=== PATIENT | female | born 1990 | race Caucasian/White ===

== ENCOUNTER 2018-07-04 22:25 | Inpatient (IN) | payer OTHER ==
[~2018-07-04] VITALS: Ht 158.8 cm; Wt 66.2 kg
[2018-07-04] MEDS: BETAMET NA PHOS/AC(6 MG/ML) 2 ML INJ SYG IM SCH ×2 (00:45→02:15)
[2018-07-04] MEDS ORDERED: MAGNESIUM SULFATE 4 GM/100 ML 100 ML IV ONE (23:30)
[2018-07-05] MEDS: MAGNESIUM SULFATE 20 GM/500 ML 500 ML IV SCH ×2 (02:04→09:31)
[2018-07-05] MEDS: LACTATED RINGER'S 1,000 ML IV SCH ×2 (03:06→16:53)
[2018-07-05] MEDS ORDERED: BUTORPHANOL 2 MG INJ IV ONE (05:30)
[2018-07-05] MEDS: PRENATAL VITAMIN PO SCH (08:43)
[2018-07-05] MEDS: FERROUS SULFATE (EC) 325 MG TAB PO SCH (08:44)
[2018-07-05] MEDS ORDERED: ONDANSETRON 4 MG INJ IV PRN (09:00)
[2018-07-05] MEDS ORDERED: ACETAMINOPHEN 325 MG TAB PO PRN (09:00)
[2018-07-05] MEDS ORDERED: BETAMET NA PHOS/AC(6 MG/ML) 2 ML INJ SYG IM SCH (09:00)
[2018-07-05] MEDS: AMPICILLIN 1 GM/NS (PMX) 50 ML IVPB SCH ×3 (09:26→22:27)
[2018-07-05] MEDS ORDERED: ACCU-CHEK XX SCH ×2 (09:35)
[2018-07-05] MEDS ORDERED: GLUCOSE GEL 15 GRAM TUBE PO PRN ×2 (11:00)
[2018-07-05] MEDS ORDERED: GLUCOSE GEL 15 GRAM TUBE BUCCAL PRN (11:00)
[2018-07-05] MEDS ORDERED: GLUCAGON 1 MG INJ IM PRN (11:00)
[2018-07-05] MEDS ORDERED: DEXTROSE 50% 50 ML SYRINGE IV PRN ×2 (11:00)
[2018-07-05] MEDS ORDERED: INSULIN ASPART [NOVOLOG] 3 ML PEN SC SCH (11:30)
--- NOTE | 2018-07-05 19:33 | PN ---
DATE: 07/05/2018 TIME: 10:30 a.m. SUBJECTIVE: The patient feels good, having occasional contractions. No headache, no blurring of vis ion. OBJECTIVE VITAL SIGNS: She is afebrile. Vital signs stable. ABDOMEN: Soft. No tenderness noted. PELVIC: No vaginal bleeding noted. EXTREMITIES: No calf tenderness. ASSESSMENT: 1. A 30 and 6/7 weeks intrauterine with labor. 2. Previous section. 3. Gestational diabetes, diet controlled. PLAN: Dr. Amador was consulted and she advised to give her antibiotics only if she has urinary tract infection. She had received 1 dose of betamethasone, and to be repeated 24 hours later. The magnesi um sulfate was 2 gm, but increased to 3 gm during the day because she was still lissette. She was also given Stadol for the pain. She will be observed closely. Dictated By: JESSIKA OWUSU MD NS/NTS Conf#: [id number] DID#: [id number] CC: JESSIKA OWUSU MD;*EndCC*
[2018-07-05] MEDS: INSULIN ASPART [NOVOLOG] 3 ML PEN SC SCH ×2 (19:41→21:00)
--- NOTE | 2018-07-05 19:41 | PREOPHP ---
DATE OF ADMISSION: 07/04/2018 HISTORY OF PRESENT ILLNESS: This is a 27-year-old lady, 4, para 3. EDC 09/07/2018 at 30 and 5/7 weeks , admitted to labor and delivery area because of contractions that this started ab out a few hours prior to admission and got worse up to the time of admission. She had care in my [facility] office and the care was uneventful except she has gestational diabetes on diet control. She is being followed by our perinatologist at [facility]. PAST PERSONAL HISTORY: No history of TB, asthma, nor allergy. SOCIAL HISTORY: Patient does not smoke. She does not drink. MEDICATIONS: She does not take any drugs except her iron and vitamins. GYNECOLOGIC HISTORY: She had menarche at the age of 10, every 28 days interval, 3 to 4 days duration , and moderate in amount. FAMILY HISTORY: Noncontributory. She is 4, para 3. Her first delivery was 10 years ago at 38 weeks, second 5 years ago at 37 weeks, third 2 years ago at 32 weeks, all by . She had another surgery done before when she was around 16 years old because of cyst removed on the right ovary. FAMILY HISTORY: Noncontributory. REVIEW OF SYSTEMS: CARDIOVASCULAR: No chest pains. RESPIRATORY: No cough. GASTROINTESTINAL: No diarrhea, no vomiting. GENITOURINARY: No dysuria. PHYSICAL EXAMINATION: GENERAL: Reveals a conscious, coherent lady and in not acute distress. VITAL SIGNS: Her blood pressure 120/80, pulse rate 80 per minute, respirations 16 per minute. BREASTS, HEART AND LUNGS: Within normal limits. ABDOMEN: Soft. No organomegaly. Fundic height 30 cm. heart tones 140 per minute. No tender ness noted in the uterine incision. PELVIC: Revealed the cervix to be closed and no bleeding noted. EXTREMITIES: No pedal edema. ADMITTING DIAGNOSIS: A 30 and 5/7 weeks intrauterine , rule out labor and rule out dehydrat ion, gestational diabetes on diet control, and 3 previous C-sections. PLAN: The patient was planned to have IV hydration and to be bolused with 500 mL of IV fluids and th en she will be admitted, observed and to be started on magnesium sulfate if contractions continue. S he will have also a CBC, CMP, urinalysis and urine culture and sensitivity. The plans were explained to the patient and she understood everything totally. The risks, benefits, and alternatives were di scussed with her as well. She still having contractions after 1 hour of observation, so she was star anson on magnesium sulfate 4 grams bolus and 2 grams per hour. She was started on betamethasone as wel l. Then, the plan have explained to the patient and she understood everything totally. Dictated By: JESSIKA VAIL/FITZ Conf#: [id number] DID#: [id number]
[2018-07-05 21:01] VITALS: Ht 158.8 cm; Wt 66.2 kg
[2018-07-06] MEDS ORDERED: BETAMET NA PHOS/AC(6 MG/ML) 2 ML INJ SYG IM ONE (02:00)
[2018-07-06] MEDS: MAGNESIUM SULFATE 20 GM/500 ML 500 ML IV SCH (02:10)
[2018-07-06] MEDS: AMPICILLIN 1 GM/NS (PMX) 50 ML IVPB SCH ×2 (05:59→13:34)
[2018-07-06] MEDS: LACTATED RINGER'S 1,000 ML IV SCH (06:00)
[2018-07-06] MEDS: FERROUS SULFATE (EC) 325 MG TAB PO SCH (08:59)
[2018-07-06] MEDS: PRENATAL VITAMIN PO SCH (09:00)
--- NOTE | 2018-07-06 15:09 | PN ---
DATE: 07/06/2018 TIME: 1:00 p.m. SUBJECTIVE: The patient feels good. No contractions. Does not have any complaint. She had good betito wel movement. She had good gas per rectum. She had good urine output. OBJECTIVE: VITAL SIGNS: She is afebrile. Vital signs stable. ABDOMEN: Soft, no tenderness noted. PELVIC: Deferred. EXTREMITIES: No pedal edema. ADMITTING: My impression on this patient is 31 weeks IUP with resolved labor. The patient w anted to go home today and she received 2 doses of betamethasone and magnesium had been continued unt il 2:00 p.m. today, which is only 12 hours after the last dose of betamethasone, but the patient want ed to go home, so then the patient will to be discharged home in good and stable condition on 1999 and then she will be on bed rest at home. She will come back to the clinic if there is any pr oblem or concern. She will be given prescription for Procardia 10 mg q. 6 hours. She will see Dr. Milly connors, the perinatologist in 1 week. She was discharged home in good and stable condition. Dictated By: JESSIKA VAIL/FITZ Conf#: [id number] DID#: [id number]
--- NOTE | 2018-07-06 15:30 | DS ---
DATE OF ADMISSION: 07/04/2018 DATE OF DISCHARGE: 07/06/2018 This is a 27-year-old lady, 4, para 3, EDC 09/07/2018 at 30 and 5/7 weeks, admitted with pret erm labor. HISTORY OF PRESENT ILLNESS: See dictated history and physical. PHYSICAL EXAMINATION: See dictated history and physical. ADMITTING DIAGNOSES: 1. A 30 and 5/7 weeks intrauterine . 2. labor. 3. Gestational diabetes mellitus, diet control. HOSPITAL COURSE: The patient was given betamethasone and she was given magnesium sulfate and she res ponded well. She did have good during the observation on 07/05/2018 and 07/06/2018. The patient wan anson to go home on 07/06/2018. She was not having any contractions. She was feeling good. She was d ischarged home in good and stable condition on 1999 ADA diet. She was given prescription for Procard ia 10 mg q.6 hours. Also, it was only 12 hours after the second dose of betamethasone was given, but the patient did not like to stay and she wanted to go home, so she was discharged home in good and s table condition. FINAL DIAGNOSES: 1. A 31 weeks intrauterine . 2. Gestational diabetes on diet control. 3. labor. Dictated By: JESSIKA OWUSU MD NS/NTS Conf#: [id number] DID#: [id number] CC: MAKAYLA ZAPATA MD;*EndCC*
== END 2018-07-06 14:54 | disposition home or self-care (01) | DRG 833 ==
LOC: OBT 22:25 → L-D 22:25 → OBT 23:00 → L-D 23:00
PROVIDERS: ADMIT Obstetrics & Gynecology; ATTEND Obstetrics & Gynecology
DX: O60.03 Preterm labor without delivery, third trimester (principal); O24.410 Gestational diabetes mellitus in pregnancy, diet controlled; O34.219 Maternal care for unspecified type scar from previous cesarean delivery; Z3A.30 30 weeks gestation of pregnancy
CPT/HCPCS: 76815; 76817; 76818; 80053; 81001; 82731; 82962; 83735; 84560; 85025; 86592; 86850; 86900; 86901; 87086; G0463; J0290; J0595; J0702; J1815; J2405; J3475; J7120

== ENCOUNTER 2018-08-18 19:06 | Inpatient (IN) | payer OTHER ==
[~2018-08-18] VITALS: Ht 158.8 cm; Wt 67.6 kg
[2018-08-18 19:24] VITALS: BP 118/57; PULSE 101; RESP 18
[2018-08-18] MEDS ORDERED: PNV11TAB PO (21:08)
[2018-08-18 21:09] VITALS: Ht 158.8 cm; Wt 67.6 kg
[2018-08-18] MEDS ORDERED: LACTATED RINGER'S 500 ML IV ONE (21:30)
[2018-08-18] MEDS ORDERED: OXYTOCIN 30 UNITS/LR 500 ML IV PRN (21:30)
[2018-08-18] MEDS ORDERED: MISOPROSTOL 200 MCG TAB PR PRN (21:30)
[2018-08-18] MEDS ORDERED: METHYLERGONOVINE 0.2 MG INJ IM PRN (21:30)
[2018-08-18] MEDS ORDERED: OXYTOCIN 30 UNITS/LR 500 ML IV SCH (21:30)
[2018-08-18] MEDS ORDERED: CARBOPROST 250 MCG INJ IM PRN (21:30)
[2018-08-18] MEDS ORDERED: CEFAZOLIN 2 GM/50 ML (PMX) 50 ML IVPB SCH (21:30)
--- NOTE | 2018-08-18 23:36 | TRIAGE ---
OB Triage Datetime Report Generated by CPN: 08/18/2018 23:35 Datetime: 08/18/2018 22:51 Assessment Type: Admission Assessment Vaginal Bleeding: None Maternal Assessment Level of Consciousness: Keenly Alert, Responsive DTR's/Clonus: DTRs 2+; No Clonus Headache: Denies Blurred Vision: No Respiratory Effort: Unlabored; Regular Rhythm; Equal Expansion Breath Sounds, Left: Clear and Equal Breath Sounds, Right: Clear and Equal Nausea/Vomiting: Denies RUQ Epigastric Pain: Denies Lower Extremities Edema: None Upper Extremities Edema: None Facial Edema: None Fall Risk Assessment History of Falling: (0) No Secondary Diagnosis: (0) No Ambulatory Aid: (0) Bedrest/Nurse Assist IV Therapy: (20) Yes Gait: (0) Normal/Bedrest/Immobile Mental Status: (0) Oriented to Own Ability Fall Score: 20 Fall Risk Score Definition: No Risk: No action required Pain Assessment Pain Scale: 4 Pain Presence: Intermittent Pain Type: Contraction Pain Location: Abdomen Pain Goal: 0 Datetime: 08/18/2018 20:40 Vaginal Exam Dilatation (cms): 2.0 Effacement (%): 60 Station: -2 Exam By: Gustavo Boateng RN Vaginal Bleeding: None Cervix, Consistency: Moderate Cervix, Position: Posterior Presentation 'A': Cephalic Datetime: 08/18/2018 19:45 Time of Arrival: 08/18/2018 22:10 EGA: 37.1 Arrived By: Ambulatory Arrived From: Home Chief Complaint: UC's Movement: Present Contractions: Irregular Time Contractions Began: 08/18/2018 10:00 Contractions: Every 5-10 minutes Rupture of Membranes: Denies Vaginal Bleeding: None Vaginal Discharge: Denies Recent Sexual Intercouse: Denies Abdominal Trauma: Not Applicable Patient Complaints: Contractions; Other Additional Patient Complaints: Small bump under each armpit. Time Provider Notified: 08/18/2018 20:55 Provider Notified: Dr. Johnson Initial Plan: [facility] Datetime: 08/18/2018 19:24 Stage of : OB Triage Assessment Type: Triage Maternal Assessment Level of Consciousness: Keenly Alert, Responsive DTR's/Clonus: DTRs 2+; No Clonus Headache: Denies Blurred Vision: No Respiratory Effort: Unlabored; Regular Rhythm; Equal Expansion Breath Sounds, Left: Clear and Equal Breath Sounds, Right: Clear and Equal Nausea/Vomiting: Denies RUQ Epigastric Pain: Denies Lower Extremities Edema: None Degree: None Upper Extremities Edema: None Degree: None Facial Edema: None Temperature Route: Oral Fall Risk Assessment History of Falling: (0) No Secondary Diagnosis: (0) No Ambulatory Aid: (0) Bedrest/Nurse Assist IV Therapy: (0) No Gait: (0) Normal/Bedrest/Immobile Mental Status: (0) Oriented to Own Ability Fall Score: 0 Fall Risk Score Definition: No Risk: No action required Pain Assessment Pain Scale: 6 Pain Presence: Intermittent Pain Type: Cramping Pain Location: Abdomen Datetime: 07/06/2018 14:05 Stage of : Antepartum Datetime: 07/06/2018 12:18 Labor Evaluation Frequency: 0 Monitor Mode: External Monitor Mode: External US (Annotations: LOSS OF INFORMATION,SITTING UP FOR LUNCH) Datetime: 07/06/2018 12:17 Stage of : Antepartum Temperature Route: Oral Pain Assessment Pain Scale: 0 Pain Presence: None/Denies Pain Goal: 0 Datetime: 07/06/2018 11:30 Labor Evaluation Frequency: X1 Monitor Mode: External Duration (sec)2399: 50 Quality: Mild Pattern: Normal: <= 5 Contractions in 10 Minutes Resting Tone Whiteriver: Relaxed Heart Rate FHR Baseline Rate: 130 Monitor Mode: External US FHR Baseline Changes: No Baseline Change Variability: Moderate 6-25 bpm Accelerations: 10X10 Decelerations: None Category: Category I Datetime: 07/06/2018 10:30 Labor Evaluation Frequency: X4 Monitor Mode: External Duration (sec)2399: 30-40 Quality: Mild Pattern: Normal: <= 5 Contractions in 10 Minutes Resting Tone [place]iteriver: Relaxed Heart Rate FHR Baseline Rate: 120 Monitor Mode: External US FHR Baseline Changes: No Baseline Change Variability: Moderate 6-25 bpm Accelerations: 15X15 Decelerations: None Category: Category I Datetime: 07/06/2018 09:30 Labor Evaluation Frequency: 0 Monitor Mode: External Pattern: Normal: <= 5 Contractions in 10 Minutes Resting Tone [place]iter[place]: Relaxed Heart Rate FHR Baseline Rate: 125 Monitor Mode: External US FHR Baseline Changes: No Baseline Change Variability: Moderate 6-25 bpm Accelerations: 10X10 Decelerations: None Category: Category I Datetime: 07/06/2018 08:26 Labor Evaluation Frequency: X1 Monitor Mode: External Quality: Mild Pattern: Normal: <= 5 Contractions in 10 Minutes Resting Tone [place]iteriver: Relaxed Heart Rate FHR Baseline Rate: 130 Monitor Mode: External US FHR Baseline Changes: No Baseline Change Variability: Moderate 6-25 bpm Accelerations: 15X15 Decelerations: None Category: Category I Datetime: 07/06/2018 07:43 Maternal Assessment Level of Consciousness: Fully Conscious DTR's/Clonus: DTRs 2+; No Clonus Headache: Denies Blurred Vision: No Respiratory Effort: Unlabored; Regular Rhythm; Equal Expansion Breath Sounds, Left: Clear and Equal Breath Sounds, Right: Clear and Equal Nausea/Vomiting: Denies RUQ Epigastric Pain: Denies Facial Edema: None Fall Risk Assessment History of Falling: (0) No Secondary Diagnosis: (0) No Ambulatory Aid: (0) Bedrest/Nurse Assist Gait: (0) Normal/Bedrest/Immobile Mental Status: (0) Oriented to Own Ability Datetime: 07/06/2018 07:02 Stage of : Antepartum Temperature Route: Oral Pain Assessment Pain Scale: 0 Pain Presence: None/Denies Pain Goal: 0 Datetime: 07/06/2018 06:00 Maternal Assessment Level of Consciousness: Fully Conscious DTR's/Clonus: No Clonus Headache: Denies Blurred Vision: No Nausea/Vomiting: Denies RUQ Epigastric Pain: Denies Facial Edema: None Labor Evaluation Frequency: X5/HR Monitor Mode: External Duration (sec)2399: 60-120 Quality: Mild Resting Tone [place]iter[place]: Relaxed Contraction Comments: PT DENIES FEELING CONTRACTIONS Heart Rate FHR Baseline Rate: 135 Monitor Mode: External US Variability: Moderate 6-25 bpm Accelerations: 15X15 Decelerations: None Category: Category I Pain Assessment Pain Scale: 0 Pain Presence: None/Denies Pain Type: N/A Datetime: 07/06/2018 05:00 Labor Evaluation Frequency: X1 Monitor Mode: External Duration (sec)2399: 90 Quality: Mild Pattern: Normal: <= 5 Contractions in 10 Minutes Resting Tone [place]iteriver: Relaxed Heart Rate FHR Baseline Rate: 135 Monitor Mode: External US FHR Baseline Changes: No Baseline Change Variability: Moderate 6-25 bpm Accelerations: 15X15 Decelerations: None Category: Category I Datetime: 07/06/2018 04:00 Labor Evaluation Frequency: X2 Monitor Mode: External Duration (sec)2399: 40-80 Quality: Mild Pattern: Normal: <= 5 Contractions in 10 Minutes Resting Tone Whiteriver: Relaxed Heart Rate FHR Baseline Rate: 135 Monitor Mode: External US FHR Baseline Changes: No Baseline Change Variability: Moderate 6-25 bpm Accelerations: 15X15 Decelerations: None Category: Category I Datetime: 07/06/2018 03:00 Labor Evaluation Frequency: X4 Monitor Mode: External Duration (sec)2399: 60-70 Quality: Mild Pattern: Normal: <= 5 Contractions in 10 Minutes Resting Tone [place]iteriver: Relaxed Heart Rate FHR Baseline Rate: 135 Monitor Mode: External US FHR Baseline Changes: No Baseline Change Variability: Moderate 6-25 bpm Accelerations: 15X15 Decelerations: None Category: Category I Datetime: 07/06/2018 02:03 Maternal Assessment Level of Consciousness: Fully Conscious DTR's/Clonus: No Clonus Headache: Denies Breath Sounds, Left: Clear and Equal Breath Sounds, Right: Clear and Equal Nausea/Vomiting: Denies RUQ Epigastric Pain: Denies Datetime: 07/06/2018 02:00 Labor Evaluation Frequency: NONE Monitor Mode: External Pattern: Normal: <= 5 Contractions in 10 Minutes Resting Tone [place]iter[place]: Relaxed Heart Rate FHR Baseline Rate: 125 Monitor Mode: External US FHR Baseline Changes: No Baseline Change Variability: Moderate 6-25 bpm Accelerations: 15X15 Decelerations: None Category: Category I Datetime: 07/06/2018 01:30 Labor Evaluation Frequency: X2 Monitor Mode: External Duration (sec)2399: 50-60 Quality: Mild Pattern: Normal: <= 5 Contractions in 10 Minutes Resting Tone [place]iter[place]: Relaxed Heart Rate FHR Baseline Rate: 135 Monitor Mode: External US FHR Baseline Changes: No Baseline Change Variability: Moderate 6-25 bpm Accelerations: 15X15 Decelerations: None Category: Category I Datetime: 07/06/2018 01:00 Labor Evaluation Frequency: X2 Monitor Mode: External Duration (sec)2399: 40-50 Quality: Mild Pattern: Normal: <= 5 Contractions in 10 Minutes Resting Tone [place]iteriver: Relaxed Heart Rate FHR Baseline Rate: 135 Monitor Mode: External US FHR Baseline Changes: No Baseline Change Variability: Moderate 6-25 bpm Accelerations: 15X15 Decelerations: None Category: Category I Datetime: 07/06/2018 00:00 Labor Evaluation Frequency: NONE Monitor Mode: External Pattern: Normal: <= 5 Contractions in 10 Minutes Resting Tone [place]iter[place]: Relaxed Heart Rate FHR Baseline Rate: 130 Monitor Mode: External US FHR Baseline Changes: No Baseline Change Variability: Moderate 6-25 bpm Accelerations: 15X15 Decelerations: None Category: Category I Datetime: 07/05/2018 23:00 Labor Evaluation Frequency: X2 Monitor Mode: External Duration (sec)2399: 40-70 Quality: Mild Pattern: Normal: <= 5 Contractions in 10 Minutes Resting Tone [place]iteriver: Relaxed Heart Rate FHR Baseline Rate: 135 Monitor Mode: External US FHR Baseline Changes: No Baseline Change Variability: Moderate 6-25 bpm Accelerations: 15X15 Decelerations: None Category: Category I Datetime: 07/05/2018 22:28 Maternal Assessment Level of Consciousness: Fully Conscious DTR's/Clonus: No Clonus Headache: Denies Breath Sounds, Left: Clear and Equal Breath Sounds, Right: Clear and Equal Nausea/Vomiting: Denies RUQ Epigastric Pain: Denies Datetime: 07/05/2018 22:00 Labor Evaluation Frequency: X2 Monitor Mode: External Duration (sec)2399: 40-50 Quality: Mild Pattern: Normal: <= 5 Contractions in 10 Minutes Resting Tone [place]iteriver: Relaxed Heart Rate FHR Baseline Rate: 135 Monitor Mode: External US FHR Baseline Changes: No Baseline Change Variability: Moderate 6-25 bpm Accelerations: 15X15 Decelerations: None Category: Category I Datetime: 07/05/2018 21:00 Labor Evaluation Frequency: X2 WITH IRRITABILITY Monitor Mode: External Duration (sec)2399: 40-50 Quality: Mild Pattern: Normal: <= 5 Contractions in 10 Minutes Resting Tone [place]iter[place]: Relaxed Heart Rate FHR Baseline Rate: 135 Monitor Mode: External US FHR Baseline Changes: No Baseline Change Variability: Moderate 6-25 bpm Accelerations: 15X15 Decelerations: None Category: Category I Datetime: 07/05/2018 20:13 Maternal Assessment Level of Consciousness: Fully Conscious DTR's/Clonus: No Clonus Headache: Denies Breath Sounds, Left: Clear and Equal Breath Sounds, Right: Clear and Equal Nausea/Vomiting: Denies RUQ Epigastric Pain: Denies Monitor Mode: External Resting Tone Whiteriver: Relaxed Monitor Mode: External US Datetime: 07/05/2018 20:00 Labor Evaluation Frequency: X2 Monitor Mode: External Duration (sec)2399: 50-70 Quality: Mild Pattern: Normal: <= 5 Contractions in 10 Minutes Resting Tone [place]iter[place]: Relaxed Heart Rate FHR Baseline Rate: 135 Monitor Mode: External US FHR Baseline Changes: No Baseline Change Variability: Moderate 6-25 bpm Accelerations: 15X15 Decelerations: None Category: Category I Datetime: 07/05/2018 19:43 Monitor Mode: External US Comments: MATERNAL REPOSITIONING, MONITOR LOSS OF CONTACT _ TRACING MATERNAL HR Datetime: 07/05/2018 19:35 Assessment Type: Ongoing Assessment Maternal Assessment Level of Consciousness: Fully Conscious DTR's/Clonus: DTRs 2+; No Clonus Headache: Denies Blurred Vision: No Respiratory Effort: Unlabored; Regular Rhythm; Equal Expansion Breath Sounds, Left: Clear and Equal Breath Sounds, Right: Clear and Equal Nausea/Vomiting: Denies RUQ Epigastric Pain: Denies Lower Extremities Edema: None Degree: None Upper Extremities Edema: None Degree: None Facial Edema: None Temperature Route: Oral Fall Risk Assessment History of Falling: (0) No Secondary Diagnosis: (0) No Ambulatory Aid: (0) Bedrest/Nurse Assist IV Therapy: (20) Yes Gait: (0) Normal/Bedrest/Immobile Mental Status: (0) Oriented to Own Ability Fall Score: 20 Fall Risk Score Definition: No Risk: No action required Pain Assessment Pain Scale: 0 Pain Presence: None/Denies Pain Type: N/A Datetime: 07/05/2018 19:19 Stage of : Antepartum Datetime: 07/05/2018 19:09 Stage of : OB Triage Assessment Type: Triage Maternal Assessment Level of Consciousness: Fully Conscious DTR's/Clonus: DTRs 2+; No Clonus Headache: Denies Blurred Vision: No Respiratory Effort: Unlabored; Regular Rhythm; Equal Expansion Breath Sounds, Left: Clear and Equal Breath Sounds, Right: Clear and Equal Nausea/Vomiting: Denies RUQ Epigastric Pain: Denies Lower Extremities Edema: None Degree: None Upper Extremities Edema: None Degree: None Facial Edema: None Temperature Route: Axillary Fall Risk Assessment History of Falling: (0) No Secondary Diagnosis: (0) No Ambulatory Aid: (0) Bedrest/Nurse Assist IV Therapy: (0) No Gait: (0) Normal/Bedrest/Immobile Mental Status: (0) Oriented to Own Ability Fall Score: 0 Fall Risk Score Definition: No Risk: No action required Datetime: 07/05/2018 19:07 Membrane Status: Intact Datetime: 07/05/2018 19:00 Labor Evaluation Frequency: X1 Labor Evaluation Frequency: 0 Monitor Mode: External Monitor Mode: External Duration (sec)2399: 70 Quality: Mild Pattern: Normal: <= 5 Contractions in 10 Minutes Pattern: Normal: <= 5 Contractions in 10 Minutes Resting Tone Whiteriver: Relaxed Resting Tone [place]iteriver: Relaxed Heart Rate FHR Baseline Rate: 135 Heart Rate FHR Baseline Rate: 130 Monitor Mode: External US Monitor Mode: External US FHR Baseline Changes: No Baseline Change FHR Baseline Changes: No Baseline Change Variability: Moderate 6-25 bpm Variability: Moderate 6-25 bpm Accelerations: 15X15 Accelerations: 10X10 Decelerations: None Decelerations: None Category: Category I Category: Category I Datetime: 07/05/2018 18:20 Assessment Type: Ongoing Assessment Maternal Assessment Level of Consciousness: Fully Conscious DTR's/Clonus: DTRs 2+; No Clonus Headache: Denies Respiratory Effort: Unlabored; Regular Rhythm Datetime: 07/05/2018 18:19 Labor Evaluation Frequency: 0 Monitor Mode: External Pattern: Normal: <= 5 Contractions in 10 Minutes Resting Tone [place]iter[place]: Relaxed Heart Rate FHR Baseline Rate: 130 Monitor Mode: External US FHR Baseline Changes: No Baseline Change Variability: Moderate 6-25 bpm Accelerations: 10X10 Decelerations: None Category: Category I Datetime: 07/05/2018 17:34 Labor Evaluation Frequency: 0 Monitor Mode: External Pattern: Normal: <= 5 Contractions in 10 Minutes Resting Tone [place]iter[place]: Relaxed Heart Rate FHR Baseline Rate: 130 Monitor Mode: External US FHR Baseline Changes: No Baseline Change Variability: Moderate 6-25 bpm Accelerations: 10X10 Decelerations: None Category: Category I Datetime: 07/05/2018 17:32 Assessment Type: Ongoing Assessment Maternal Assessment Level of Consciousness: Fully Conscious DTR's/Clonus: DTRs 2+; No Clonus Headache: Denies Blurred Vision: No Respiratory Effort: Unlabored; Regular Rhythm Breath Sounds, Left: Clear and Equal Breath Sounds, Right: Clear and Equal Datetime: 07/05/2018 17:29 Stage of : Antepartum Datetime: 07/05/2018 16:30 Labor Evaluation Frequency: 0 Monitor Mode: External Pattern: Normal: <= 5 Contractions in 10 Minutes Resting Tone [place]iteriver: Relaxed Heart Rate FHR Baseline Rate: 130 Monitor Mode: External US FHR Baseline Changes: No Baseline Change Variability: Moderate 6-25 bpm Accelerations: 15X15 Decelerations: None Category: Category I Datetime: 07/05/2018 15:30 Labor Evaluation Frequency: 0 Monitor Mode: External Pattern: Normal: <= 5 Contractions in 10 Minutes Resting Tone [place]iteriver: Relaxed Heart Rate FHR Baseline Rate: 130 Monitor Mode: External US FHR Baseline Changes: No Baseline Change Variability: Moderate 6-25 bpm Accelerations: 15X15 Decelerations: None Category: Category I Datetime: 07/05/2018 14:30 Labor Evaluation Frequency: 0 Monitor Mode: External Pattern: Normal: <= 5 Contractions in 10 Minutes Resting Tone [place]iteriver: Relaxed Heart Rate FHR Baseline Rate: 130 Monitor Mode: External US FHR Baseline Changes: No Baseline Change Variability: Moderate 6-25 bpm Accelerations: 15X15 Decelerations: None Category: Category I Datetime: 07/05/2018 14:00 Assessment Type: Ongoing Assessment Maternal Assessment Level of Consciousness: Fully Conscious DTR's/Clonus: DTRs 2+; No Clonus Headache: Denies Blurred Vision: No Respiratory Effort: Unlabored; Regular Rhythm Breath Sounds, Left: Clear and Equal Breath Sounds, Right: Clear and Equal Datetime: 07/05/2018 13:40 Labor Evaluation Frequency: 0 Monitor Mode: External Pattern: Normal: <= 5 Contractions in 10 Minutes Resting Tone [place]iter[place]: Relaxed Heart Rate FHR Baseline Rate: 125 Monitor Mode: External US FHR Baseline Changes: No Baseline Change Variability: Moderate 6-25 bpm Accelerations: 15X15 Decelerations: None Category: Category I Datetime: 07/05/2018 13:37 Stage of : Datetime: 07/05/2018 13:00 Labor Evaluation Frequency: 0 Monitor Mode: External Pattern: Normal: <= 5 Contractions in 10 Minutes Resting Tone [place]iter[place]: Relaxed Heart Rate FHR Baseline Rate: 125 Monitor Mode: External US FHR Baseline Changes: No Baseline Change Variability: Moderate 6-25 bpm Accelerations: 15X15 Decelerations: None Category: Category I Datetime: 07/05/2018 12:05 Stage of : Antepartum Temperature Route: Oral Pain Assessment Pain Scale: 0 Pain Presence: None/Denies Pain Goal: 0 Datetime: 07/05/2018 12:01 Labor Evaluation Frequency: X1 Monitor Mode: External Quality: Mild Pattern: Normal: <= 5 Contractions in 10 Minutes Resting Tone [place]iteriver: Relaxed Heart Rate FHR Baseline Rate: 125 Monitor Mode: External US FHR Baseline Changes: No Baseline Change Variability: Moderate 6-25 bpm Accelerations: 15X15 Decelerations: None Category: Category I Datetime: 07/05/2018 12:00 Assessment Type: Ongoing Assessment Maternal Assessment Level of Consciousness: Fully Conscious DTR's/Clonus: DTRs 2+; No Clonus Headache: Denies Blurred Vision: No Respiratory Effort: Unlabored; Regular Rhythm Breath Sounds, Left: Clear and Equal Breath Sounds, Right: Clear and Equal Nausea/Vomiting: Denies Datetime: 07/05/2018 11:00 Stage of : Antepartum Temperature Route: Oral Labor Evaluation Frequency: X1 Monitor Mode: External Quality: Mild Heart Rate FHR Baseline Rate: 120 Monitor Mode: External US FHR Baseline Changes: No Baseline Change Variability: Moderate 6-25 bpm Accelerations: 15X15 Decelerations: None Category: Category I Datetime: 07/05/2018 10:29 Labor Evaluation Frequency: 0 Monitor Mode: External Pattern: Normal: <= 5 Contractions in 10 Minutes Resting Tone [place]iter[place]: Relaxed Heart Rate FHR Baseline Rate: 120 Monitor Mode: External US FHR Baseline Changes: No Baseline Change Variability: Moderate 6-25 bpm Accelerations: 15X15 Decelerations: None Category: Category I Datetime: 07/05/2018 10:05 Vaginal Exam Dilatation (cms): 0.0 Effacement (%): 0 Station: -4 Exam By: DR SALCEDA Datetime: 07/05/2018 10:00 Assessment Type: Ongoing Assessment Maternal Assessment Level of Consciousness: Fully Conscious DTR's/Clonus: DTRs 2+; No Clonus Headache: Denies Blurred Vision: No Respiratory Effort: Unlabored; Regular Rhythm Datetime: 07/05/2018 09:30 Labor Evaluation Frequency: 0 Monitor Mode: External Pattern: Normal: <= 5 Contractions in 10 Minutes Resting Tone [place]: Relaxed Heart Rate FHR Baseline Rate: 130 Monitor Mode: External US FHR Baseline Changes: No Baseline Change Variability: Moderate 6-25 bpm Accelerations: 15X15 Decelerations: None Category: Category I Datetime: 07/05/2018 08:41 Labor Evaluation Frequency: X2 Monitor Mode: External Quality: Mild Heart Rate FHR Baseline Rate: 120 Monitor Mode: External US FHR Baseline Changes: No Baseline Change Variability: Moderate 6-25 bpm Accelerations: 10X10 Decelerations: None Category: Category I Datetime: 07/05/2018 08:36 Stage of : Antepartum Datetime: 07/05/2018 08:02 Labor Evaluation Frequency: X1 Monitor Mode: External Quality: Mild Pattern: Normal: <= 5 Contractions in 10 Minutes Resting Tone [place]iter[place]: Relaxed Heart Rate FHR Baseline Rate: 120 Monitor Mode: External US FHR Baseline Changes: No Baseline Change Variability: Moderate 6-25 bpm Accelerations: 15X15 Decelerations: None Category: Category I Datetime: 07/05/2018 08:01 Stage of : Antepartum Temperature Route: Oral Pain Assessment Pain Scale: 0 Pain Presence: None/Denies Pain Type: N/A Pain Location: Abdomen Pain Goal: 0 Pain Relief Measures: Comfort Measures Datetime: 07/05/2018 07:57 Assessment Type: Ongoing Assessment Maternal Assessment Level of Consciousness: Fully Conscious DTR's/Clonus: DTRs 2+; No Clonus Headache: Denies Blurred Vision: No Respiratory Effort: Unlabored; Regular Rhythm; Equal Expansion Breath Sounds, Left: Clear and Equal Breath Sounds, Right: Clear and Equal Nausea/Vomiting: Denies RUQ Epigastric Pain: Denies Lower Extremities Edema: None Degree: None Upper Extremities Edema: None Degree: None Facial Edema: None Fall Risk Assessment History of Falling: (0) No Secondary Diagnosis: (0) No Ambulatory Aid: (0) Bedrest/Nurse Assist IV Therapy: (20) Yes Gait: (0) Normal/Bedrest/Immobile Mental Status: (0) Oriented to Own Ability Fall Score: 20 Fall Risk Score Definition: No Risk: No action required Datetime: 07/05/2018 06:57 Stage of : Antepartum Maternal Assessment Level of Consciousness: Fully Conscious Labor Evaluation Frequency: x6 Monitor Mode: External Duration (sec)2399: 20-50 Pattern: Normal: <= 5 Contractions in 10 Minutes Resting Tone [place]iter[place]: Relaxed Heart Rate FHR Baseline Rate: 140 Monitor Mode: External US Variability: Moderate 6-25 bpm Accelerations: 15X15 Decelerations: None Datetime: 07/05/2018 05:45 Stage of : Antepartum Maternal Assessment Level of Consciousness: Fully Conscious Labor Evaluation Frequency: x7 Monitor Mode: External Duration (sec)2399: 40-60 Pattern: Normal: <= 5 Contractions in 10 Minutes Resting Tone [place]iter[place]: Relaxed Heart Rate FHR Baseline Rate: 140 Monitor Mode: External US Variability: Moderate 6-25 bpm Accelerations: 15X15 Decelerations: None Datetime: 07/05/2018 05:29 Stage of : Antepartum Datetime: 07/05/2018 05:21 Stage of : Antepartum Datetime: 07/05/2018 05:15 Stage of : Antepartum Maternal Assessment Level of Consciousness: Fully Conscious DTR's/Clonus: DTRs 2+; No Clonus Headache: Denies Breath Sounds, Left: Clear and Equal Breath Sounds, Right: Clear and Equal Nausea/Vomiting: Denies RUQ Epigastric Pain: Denies Temperature Route: Oral Labor Evaluation Frequency: x5 Monitor Mode: External Pattern: Normal: <= 5 Contractions in 10 Minutes Resting Tone [place]: Relaxed Heart Rate FHR Baseline Rate: 140 Monitor Mode: External US Variability: Moderate 6-25 bpm Accelerations: 15X15 Decelerations: None Datetime: 07/05/2018 04:14 Stage of : Antepartum Maternal Assessment Level of Consciousness: Fully Conscious DTR's/Clonus: DTRs 2+; No Clonus Headache: Denies Breath Sounds, Left: Clear and Equal Breath Sounds, Right: Clear and Equal Nausea/Vomiting: Denies RUQ Epigastric Pain: Denies Labor Evaluation Frequency: x5 Monitor Mode: External Pattern: Normal: <= 5 Contractions in 10 Minutes Resting Tone [place]: Relaxed Contraction Comments: Pt called me to room, feels UC's stronger. Palpated abdomin, mild UC not. P t lying on back, repositioned pt on side and placed pillow behind back. Pt is requesting pain medica tion for UC's she can't sleep. Heart Rate FHR Baseline Rate: 140 Monitor Mode: External US Variability: Moderate 6-25 bpm Accelerations: 15X15 Decelerations: None Datetime: 07/05/2018 03:14 Stage of : Antepartum Maternal Assessment Level of Consciousness: Fully Conscious DTR's/Clonus: DTRs 2+; No Clonus Headache: Denies Breath Sounds, Left: Clear and Equal Breath Sounds, Right: Clear and Equal Nausea/Vomiting: Denies RUQ Epigastric Pain: Denies Labor Evaluation Frequency: 0 Monitor Mode: External Pattern: Normal: <= 5 Contractions in 10 Minutes Resting Tone [place]: Relaxed Heart Rate FHR Baseline Rate: 140 Monitor Mode: External US Variability: Moderate 6-25 bpm Accelerations: 15X15 Decelerations: None Datetime: 07/05/2018 02:15 Stage of : Antepartum Datetime: 07/05/2018 02:04 Stage of : Antepartum Maternal Assessment Level of Consciousness: Fully Conscious DTR's/Clonus: DTRs 2+; No Clonus Headache: Denies Breath Sounds, Left: Clear and Equal Breath Sounds, Right: Clear and Equal Nausea/Vomiting: Denies RUQ Epigastric Pain: Denies Labor Evaluation Frequency: 0 Monitor Mode: External Pattern: Normal: <= 5 Contractions in 10 Minutes Resting Tone [place]: Relaxed Heart Rate FHR Baseline Rate: 140 Monitor Mode: External US Variability: Moderate 6-25 bpm Accelerations: 15X15 Decelerations: None Datetime: 07/05/2018 01:29 Stage of : Antepartum Temperature Route: Oral Datetime: 07/05/2018 01:24 Stage of : Antepartum Maternal Assessment Level of Consciousness: Fully Conscious DTR's/Clonus: DTRs 2+; No Clonus Headache: Denies Breath Sounds, Left: Clear and Equal Breath Sounds, Right: Clear and Equal Nausea/Vomiting: Denies RUQ Epigastric Pain: Denies Labor Evaluation Frequency: 2-8 Monitor Mode: External Duration (sec)2399: 50-70 Pattern: Normal: <= 5 Contractions in 10 Minutes Resting Tone [place]: Relaxed Heart Rate FHR Baseline Rate: 150 Monitor Mode: External US Variability: Moderate 6-25 bpm Accelerations: 15X15 Decelerations: None Datetime: 07/05/2018 00:30 Stage of : Antepartum Assessment Type: Admission Assessment Maternal Assessment Level of Consciousness: Fully Conscious DTR's/Clonus: DTRs 2+; No Clonus Headache: Denies Blurred Vision: No Respiratory Effort: Unlabored; Regular Rhythm; Equal Expansion Breath Sounds, Left: Clear and Equal Breath Sounds, Right: Clear and Equal Nausea/Vomiting: Denies RUQ Epigastric Pain: Denies Facial Edema: None Fall Risk Assessment History of Falling: (0) No Secondary Diagnosis: (0) No Ambulatory Aid: (0) Bedrest/Nurse Assist IV Therapy: (0) No Gait: (0) Normal/Bedrest/Immobile Mental Status: (0) Oriented to Own Ability Fall Score: 0 Fall Risk Score Definition: No Risk: No action required Labor Evaluation Frequency: 2-8 Monitor Mode: External Duration (sec)2399: 50-70 Pattern: Normal: <= 5 Contractions in 10 Minutes Resting Tone [place]: Relaxed Heart Rate FHR Baseline Rate: 150 Monitor Mode: External US Variability: Moderate 6-25 bpm Accelerations: 15X15 Decelerations: None Datetime: 07/05/2018 00:05 Stage of : Antepartum Datetime: 07/05/2018 00:00 Stage of : Antepartum Labor Evaluation Frequency: 2-8 Monitor Mode: External Duration (sec)2399: 50-70 Pattern: Normal: <= 5 Contractions in 10 Minutes Resting Tone [place]: Relaxed Heart Rate FHR Baseline Rate: 150 Monitor Mode: External US Variability: Moderate 6-25 bpm Accelerations: 15X15 Decelerations: None Category: Category I Datetime: 07/04/2018 22:54 Stage of : OB Triage Labor Evaluation Frequency: 2-3 Monitor Mode: External Duration (sec)2399: 40-60 Quality: Mild Pattern: Normal: <= 5 Contractions in 10 Minutes Resting Tone [place]: Relaxed Heart Rate FHR Baseline Rate: 145 Monitor Mode: External US Variability: Moderate 6-25 bpm Accelerations: 15X15 Decelerations: None Category: Category I Datetime: 07/04/2018 22:50 Stage of : OB Triage Bedside Blood Glucose: 115 Datetime: 07/04/2018 22:34 Time of Arrival: 07/04/2018 23:30 EGA: 30.5 Arrived By: Ambulatory Datetime: 07/04/2018 22:30 Stage of : OB Triage Maternal Assessment Level of Consciousness: Fully Conscious DTR's/Clonus: DTRs 2+; No Clonus Headache: Denies Blurred Vision: No Respiratory Effort: Unlabored; Regular Rhythm; Equal Expansion Breath Sounds, Left: Clear and Equal Breath Sounds, Right: Clear and Equal Nausea/Vomiting: Denies RUQ Epigastric Pain: Denies Lower Extremities Edema: None Degree: None Upper Extremities Edema: None Degree: None Facial Edema: None Temperature Route: Oral Fall Risk Assessment History of Falling: (25) Yes Secondary Diagnosis: (0) No Ambulatory Aid: (0) Bedrest/Nurse Assist IV Therapy: (0) No Gait: (0) Normal/Bedrest/Immobile Mental Status: (0) Oriented to Own Ability Fall Score: 25 Fall Risk Score Definition: Low Risk: Please see standard fall prevention interventions Pain Assessment Pain Scale: 7 Pain Presence: Constant Pain Type: Cramping; Pressure Pain Location: Abdomen Pain Goal: 3 Pain Relief Measures: Comfort Measures Datetime: 07/04/2018 22:27 Monitor Mode: External Monitor Mode: External US Datetime: 07/04/2018 22:09 Time of Arrival: 07/04/2018 22:09 Arrived By: Wheelchair Arrived From: Home Chief Complaint: U/C 07/04/18@0200, Fall on butt _ back Movement: Present Contractions: Regular Time Contractions Began: 07/04/2018 02:00 Rupture of Membranes: Denies Vaginal Bleeding: None Vaginal Discharge: Denies Recent Sexual Intercouse: Denies Abdominal Trauma: Not Applicable Patient Complaints: Contractions; Cramping
[2018-08-19] MEDS ORDERED: CITRIC ACID/NA CITRATE 30 ML CUP PO ONE (01:00)
[2018-08-19] MEDS ORDERED: METOCLOPRAMIDE 10 MG INJ IM ONE (01:00)
[2018-08-19] MEDS ORDERED: FAMOTIDINE 20 MG INJ IV ONE (01:00)
[2018-08-19] MEDS ORDERED: morphine SULFATE/PF (10 MG/10 ML) INJ ONE (01:25)
--- NOTE | 2018-08-19 01:25 | PREAC ---
Date/Time of Note Date/Time of Note DATE: 08/19/18 TIME: :24 Anesthesia Eval and Record Evaluation Time Pre-Procedure Interview DATE: 08/19/18 TIME: :24 Age 27 Sex female NPO: 8 hrs Preoperative diagnosis intrauterine Planned procedure repeat c section Past Medical History Past Medical History: Includes Heme: Anemia : : (4), Para: (3) Surgery & Anesthesia Issues No known issue Meds Anticoagulation: No Beta Gabby within 24 hr: No Reason Beta Gabby not given: Pt. not on B-Gabby Reported Medications [id number] ( ) 1 Each Tablet, 1 TAB PO DAILY, TAB 08/18/18 Current Medications Lactated Ringer's 1,000 ml @ 125 mls/hr Q8H IV ; Start 08/18/18 at 21:10 Cefazolin Sodium/ Dextrose 50 ml @ 100 mls/hr ONCE IVPB ; Start 08/18/18 at 21:30 Oxytocin/Lactated Ringer's 500 ml @ 125 mls/hr POST IV ; Start 08/18/18 at 21:30 Oxytocin/Lactated Ringer's 500 ml @ 0 mls/hr ONCE PRN IV .VAGINAL BLEEDING; Start 08/18/18 at 21:30 Methylergonovine Maleate (Methergine) 0.2 mg ONCE PRN IM .VAGINAL BLEEDING; Start 08/18/18 at 21:30 Carboprost Tromethamine (Hemabate) 250 mcg ONCE PRN IM .VAGINAL BLEEDING; Start 08/18/18 at 21:30 Misoprostol (Cytotec) 1,000 mcg ONCE PRN [place] .VAGINAL BLEEDING; Start 08/18/18 at 21:30 Metoclopramide HCl (Reglan) 10 mg ONCE ONCE IV ; Start 08/19/18 at 01:30; Stop 08/19/18 at 01:31 Meds reviewed: Yes Allergies Coded Allergies: No Known Allergy (Verified , 08/18/18) Allergies Reviewed: Yes Labs/Studies Labs Reviewed: Reviewed by anesthesiologist Result Diagram: 08/18/18 2210 Laboratory Tests 08/18/18 22:10 Blood Bank Test 08/18/18 22:10 Antibody Screen NEGATIVE Blood Product Summary Counts Blood Type A POSITIVE Crossmatch Red Blood Cells Rh Immune Globulin Candidate NO test: N/A Pre-procedure Exam Last vitals Vital Signs Date Temp Pulse Resp B/P (MAP) Pulse Ox O2 O2 Flow FiO2 Time Delivery Rate 08/18/18 98.5 101 18 118/57 Room Air 19:24 (77) Airway: Adequate mouth opening, Adequate thyromental dist Mallampati: Mallampati II Teeth: Normal Lung: Normal Heart: Normal ASA Physical Status ASA physical status: 2 Emergency: None Planned Anesthetic Neuraxial: Spinal Planned Pain Management Sub-arachniod narcotics, Parenteral pain med Pre-operative Attestations Prior to commencing anesthesia and surgery, the patient was re-evaluated, there was verification of: *The patient's identity *The results of appropriate recent lab work and preoperative vital signs *The above evaluation not changing prior to induction *Anesthetic plan, risk benefits, alternative and complications discussed with patient/family; questions answered; patient/family understands, accepts and wishes to proceed. NESHA ESPINAL MD Aug 19, 2018 01:24
[2018-08-19] MEDS ORDERED: METOCLOPRAMIDE 10 MG INJ IV ONE (01:30)
[2018-08-19] MEDS ORDERED: ONDANSETRON 4 MG INJ ONE (01:50)
[2018-08-19] MEDS ORDERED: FENTAnyl 50 MCG/ML VIAL IV PRN ×3 (02:00)
[2018-08-19] MEDS ORDERED: KETOROLAC 30 MG INJ IV PRN ×2 (02:00→03:00)
[2018-08-19] MEDS ORDERED: HYDROmorphONE 1 MG/5 ML IV SYRINGE IV PRN ×3 (02:00)
[2018-08-19] MEDS ORDERED: ONDANSETRON 4 MG INJ IV PRN ×2 (02:00→03:00)
[2018-08-19] MEDS ORDERED: PROCHLORPERAZINE 10 MG INJ IV PRN (02:00)
[2018-08-19] MEDS ORDERED: DIPHENHYDRAMINE 50 MG INJ IV PRN ×2 (02:00→03:00)
[2018-08-19] MEDS ORDERED: MEPERIDINE 25 MG INJ IV PRN (02:00)
[2018-08-19] MEDS ORDERED: MIDAZOLAM 1 MG/ML 2 ML INJ ONE (02:03)
[2018-08-19] MEDS ORDERED: PHENYLephrine (100 MCG/ML) 10ML SYG ONE (02:18)
[2018-08-19] MEDS ORDERED: OXYTOCIN 30 UNITS/LR 500 ML IV ONE (02:18)
--- NOTE | 2018-08-19 02:27 | PAC ---
Date/Time of Note Date/Time of Note DATE: 08/19/18 TIME: 02:25 Post-Anesthesia Notes Post-Anesthesia Note Last documented vital signs Vital Signs Date Temp Pulse Resp B/P (MAP) Pulse Ox O2 O2 Flow FiO2 Time Delivery Rate 08/18/18 98.5 101 18 118/57 Room Air 19:24 (77) Activity: WNL Respiratory function: WNL Cardiovascular function: WNL Mental status: Baseline Pain reasonably controlled: Yes Hydration appropriate: Yes Nausea/Vomiting absent: Yes Comments BP: 112/57 HR: 78 RR: 15 T: 97.6 SaO2: 96% NESHA ESPINAL MD Aug 19, 2018 02:27
[2018-08-19] MEDS: LACTATED RINGER'S 1,000 ML IV SCH ×4 (02:29→16:55)
[2018-08-19] MEDS ORDERED: OXYTOCIN 30 UNITS/LR 500 ML IV SCH (02:55)
[2018-08-19] MEDS ORDERED: LACTATED RINGER'S 1,000 ML IV SCH (02:55)
[2018-08-19] MEDS ORDERED: LANOLIN HPA 1 PKT TOP PRN (03:00)
[2018-08-19] MEDS ORDERED: CARBOPROST 250 MCG INJ IM PRN (03:00)
[2018-08-19] MEDS ORDERED: NALOXONE (0.4 MG/ML) INJ IV PRN (03:00)
[2018-08-19] MEDS ORDERED: HYDROmorphONE 0.5 MG/0.5 ML SYG IV PRN ×2 (03:00)
[2018-08-19] MEDS ORDERED: ZOLPIDEM 5 MG TAB PO PRN (03:00)
[2018-08-19] MEDS ORDERED: OXYTOCIN 30 UNITS/LR 500 ML IV PRN (03:00)
[2018-08-19] MEDS ORDERED: METHYLERGONOVINE 0.2 MG INJ IM PRN (03:00)
[2018-08-19] MEDS ORDERED: METHYLERGONOVINE 0.2 MG TAB PO PRN (03:00)
[2018-08-19] MEDS ORDERED: MISOPROSTOL 200 MCG TAB PR PRN (03:00)
--- NOTE | 2018-08-19 05:07 | PREOPHP ---
DATE OF ADMISSION: 08/18/2018 HISTORY OF PRESENT ILLNESS: This is a 27-year-old lady, 4, para 3, EDC 09/07/2018 at 37-1/7 weeks, admitted to labor and delivery area to rule out labor. She started to have lower abdominal pa ins and low back pain since 9:00 a.m. in the morning on 08/18/2018. She came to the [facility] ed at 2055 on 08/18/2018. She was observed. She was having mild irregular contraction and got worse up to the time that she was scheduled to have a . She came at 2 cm dilated and then she pr ogressed up to 3 to 4 cm dilated with good contractions, so she was scheduled to have a repeat C-sect ion. The procedures were explained to the patient and she understood everything totally. Also, this patient is a noncompliant patient, and her last visit in the clinic was about 1 to 2 months prior to admission. PAST PERSONAL HISTORY: No history of diabetes, TB, asthma. ALLERGIES: NO ALLERGIES. SOCIAL HISTORY: The patient does not smoke. She does not drink. MEDICATIONS: She does not take any drugs except her iron and vitamins. GYNECOLOGIC HISTORY: She had menarche at the age of 10, every 28 days interval, 3 to 4 days duration , and moderate in amount. FAMILY HISTORY: Noncontributory. OBSTETRICAL HISTORY: She is 4, para 3. Her first delivery was in 2008, second in 2013, thir d in 2017; all by . REVIEW OF SYSTEMS: CARDIOVASCULAR: No chest pains. RESPIRATORY: No cough. GASTROINTESTINAL: No diarrhea, no vomiting. GENITOURINARY: No dysuria. PHYSICAL EXAMINATION: GENERAL: Reveals a conscious, coherent lady in no acute distress. VITAL SIGNS: Blood pressure 120/80, pulse rate 80 per minute, respirations 16 per minute. BREASTS, HEART AND LUNGS: Within normal limits. ABDOMEN: Soft. Fundic height 35 cm. heart tones 140 per minute. PELVIC: Exam done by nurse revealed the cervix to be 3 to 4 cm dilated, 100% effaced, station floati ng in cephalic presentation with the bag of water intact. EXTREMITIES: No pedal edema. ADMITTING DIAGNOSES: 37 and 1/7 weeks intrauterine in labor with 3 previous secti ons. Because the patient continued to have contractions, she was scheduled to have . Dictated By: JESSIKA OWUSU MD NS/NTS Conf#: [id number] DID#: [id number] CC: JESSIKA OWUSU MD;*End*
[2018-08-19 08:00] VITALS: BP_SYST 126; BP_SYST 98; BP_DIAS 54; BP_DIAS 67; PULSE 80; PULSE 85; RESP 16
[2018-08-19] MEDS: SENNA/DOCUSATE NA (8.6MG/50MG) TAB PO SCH ×2 (08:54→21:08)
[2018-08-19 12:30] VITALS: BP 107/51; PULSE 74; RESP 16
[2018-08-19 15:45] VITALS: BP 103/54; PULSE 69; RESP 17
--- NOTE | 2018-08-19 18:29 | OPR ---
DATE OF OPERATION: 08/19/2018 PREOPERATIVE DIAGNOSIS: A 37 and 1/7 weeks intrauterine in labor with 3 previous sections. POSTOPERATIVE DIAGNOSIS: A 37 and 1/7 weeks intrauterine in labor with 3 previous sections. OPERATION PERFORMED: Repeat low transverse section. SURGEON: Sonia Johnson MD CYLINDER FILLER: Kaushal Heller MD ANESTHESIA: Spinal. ANESTHESIOLOGIST: Krys Noland MD OPERATIVE TECHNIQUE: Under spinal anesthesia, the patient was prepped and draped in the usual fashio n for abdominal surgery. After checking for the effect of the anesthesia, the previous Pfannenstiel scar was excised. A 12 cm skin incision was performed. The incision was carried from the skin up to the fascia. Upon opening the skin up to the fascia, small blood vessels were noted to be oozing and these were all cauterized. The fascia was opened transversely followed by splitting the muscles rehan tically and the peritoneum vertically. Upon opening the abdominal cavity, there were no adhesions no anson. The lower uterine segment was noted to be thinned out and then an incision was performed about 2 inches above the lower uterine segment from the serosa up to the endometrium, and the juan francisco was alvarado ied sideways with the aid of my 2 fingers. My left hand was inserted on the lower segment of the wayne david and the bag of water was ruptured. Clear fluid was noted. The baby's head was delivered and the baby's airways were quickly suctioned with amniotic fluid. The anterior shoulder, posterior shoulde r, and rest of the body of the baby was delivered. The baby's airways were quickly suctioned with am niotic fluid. The cord was clamped after 30 seconds. The baby was handed to the NICU team and to [facility] nursery nurse. The placenta was delivered manually and complete. The uterus was exteriorized. [facility] uterus was cleansed with wet lap sponge to make sure that no membranes were left behind. Aft er correct sponge count, the uterus was closed in the usual fashion using #1 chromic for the first la christiane, continuous locking suture was used, followed by #1 chromic for the second layer, imbricating sut ures were used. Bleeders were checked and there was no bleeding noted. After checking for any bleed ers in which there were none, both tubes and ovaries were inspected. They were healthy looking. The back of the uterus was checked for any hematoma and there was none noted. The uterus was put back t o the pelvic cavity. Once again, the uterine incision was checked for any bleeder and there was no b leeding noted. After correct sponge count, needle count and instrument count as confirmed by the scr ub tech and sign writer letterer or painter, the abdomen was closed in the usual fashion using 0 Vicryl for the peritoneum and 0 Vicryl for the muscles. For the fascia, 0 Vicryl continuous stitch was used followed by a few [id number] sutures. For the subcutaneous tissue, it was closed with 3-0 Vicryl and the skin wa s closed with 3-0 Vicryl, subcuticular suture was used. The patient tolerated the procedure well. E stimated blood loss about 600 mL. Vital signs were stable during and after the procedure. The patie nt delivered a healthy baby girl at 1:50 a.m. 08/19/2018. Apgars 8 and 9, weighing 6 pounds 6 ounces , 2890 grams, 19 inches long. Dictated By: SONIA VAIL/FITZ Conf#: [id number] DID#: [id number]
[2018-08-19 20:00] VITALS: BP 110/60; PULSE 76; RESP 18
[2018-08-20 04:28] VITALS: BP 104/57; PULSE 60; RESP 20
[2018-08-20] MEDS: LACTATED RINGER'S 1,000 ML IV SCH ×3 (05:10→21:10)
[2018-08-20 08:00] VITALS: BP 108/58; PULSE 70; RESP 18
[2018-08-20] MEDS: HYDROCODONE/APAP (5/325) TAB PO PRN ×3 (08:13→20:02)
[2018-08-20] MEDS: SENNA/DOCUSATE NA (8.6MG/50MG) TAB PO SCH ×2 (08:13→20:02)
[2018-08-20] MEDS ORDERED: HYDROCODONE/APAP (5/325) TAB PO PRN (08:30)
--- NOTE | 2018-08-20 13:43 | PN ---
Date/Time of Note Date/Time of Note DATE: 08/20/18 TIME: 13:42 Assessment/Plan VTE Prophylaxis Risk score (from Ns)>0 risk: 1 SCD applied (from [facility] [place]): No SCD contraindicated: low risk/ambulating Pharmacological prophylaxis: NA/contraindicated Pharm contraindication: low risk/ambulating Lines/Catheters IV Catheter Type (from [facility]): Saline Lock Assessment/Plan Assessment/Plan POSTCSECTION DAY 1 CHRONIC IRON DEFICIENCY ANEMIA ORDERED ADVANCE DIET TOLERATED CBC ON 3RD POSTOP DAY Result Diagram: 08/20/18 0652 08/20/18 0652 Results 24hrs Laboratory Tests Test 08/20/18 06:00 08/20/18 06:52 Lab Scanned Report REFERENCE LAB White Blood Count 15.1 #H Red Blood Count 2.87 L Hemoglobin 7.5 L Hematocrit 23.8 L Mean Corpuscular Volume 82.9 Mean Corpuscular Hemoglobin 26.1 L Mean Corpuscular Hemoglobin Concent 31.5 L Red Cell Distribution Width 15.5 H Platelet Count 185 Mean Platelet Volume 11.2 H Immature Granulocytes % 1.100 H Neutrophils % 76.5 Lymphocytes % 12.7 L Monocytes % 6.9 Eosinophils % 2.4 Basophils % 0.4 Nucleated Red Blood Cells % 0.0 Immature Granulocytes # 0.160 H Neutrophils # 11.6 H Lymphocytes # 1.9 Monocytes # 1.1 H Eosinophils # 0.4 Basophils # 0.1 Nucleated Red Blood Cells # 0.0 Sodium Level 134 L Potassium Level 3.9 Chloride Level 104 Carbon Dioxide Level 25 Anion Gap 5 Blood Urea Nitrogen 6 L Creatinine 0.63 Est Glomerular Filtrat Rate mL/min > 60 Glucose Level 69 L Calcium Level 8.0 L Subjective 24 Hr Interval Summary Free Text/Dictation POST CSECTION DAY 1 COMPLAIN OF INCISIONAL PAINS GOOD URINE OUTPUT PASSING GAS PER RECTUM NO BOWEL MOVEMENT YET Exam/Review of Systems Exam Vitals Vital Signs Date Temp Pulse Resp B/P (MAP) Pulse Ox O2 O2 Flow FiO2 Time Delivery Rate 08/20/18 98.1 70 18 108/58 Room Air 08:00 (75) 08/19/18 97 20:00 Intake and Output 08/19/18 08/19/18 08/20/18 1515:00 23:00 07:00 IntakeIntake Total 400 ml 850 ml 250 ml OutputOutput Total 250 ml 1300 ml 1650 ml BalanceBalance 150 ml -450 ml -1400 ml Exam VITAL SIGNS STABLE: YES AFEBRILE: YES BREAST NOT ENGORGED, NON-TENDER, NO APPRECIABLE MASS: YES LUNGS CLEAR, NO RALES, WHEEZES, RHONCHI: YES SINUS RHYTHM WITHOUT MURMUR: YES ABDOMEN: NON-TENDER FUNDUS: BELOW UMBILICUS BOWEL SOUNDS: PRESENT UTERUS: FIRM INCISION (CLEAN, DRY, AND INTACT): YES LOCHIA: LIGHT DEEP TENDON REFLEXES: 0 EXTREMITIES: NO CALF TENDERNESS EDEMA SCALE: NONE Results Results 24hrs Laboratory Tests Test 08/20/18 06:00 08/20/18 06:52 Lab Scanned Report REFERENCE LAB White Blood Count 15.1 #H Red Blood Count 2.87 L Hemoglobin 7.5 L Hematocrit 23.8 L Mean Corpuscular Volume 82.9 Mean Corpuscular Hemoglobin 26.1 L Mean Corpuscular Hemoglobin Concent 31.5 L Red Cell Distribution Width 15.5 H Platelet Count 185 Mean Platelet Volume 11.2 H Immature Granulocytes % 1.100 H Neutrophils % 76.5 Lymphocytes % 12.7 L Monocytes % 6.9 Eosinophils % 2.4 Basophils % 0.4 Nucleated Red Blood Cells % 0.0 Immature Granulocytes # 0.160 H Neutrophils # 11.6 H Lymphocytes # 1.9 Monocytes # 1.1 H Eosinophils # 0.4 Basophils # 0.1 Nucleated Red Blood Cells # 0.0 Sodium Level 134 L Potassium Level 3.9 Chloride Level 104 Carbon Dioxide Level 25 Anion Gap 5 Blood Urea Nitrogen 6 L Creatinine 0.63 Est Glomerular Filtrat Rate mL/min > 60 Glucose Level 69 L Calcium Level 8.0 L Medications Medication Current Medications Lactated Ringer's 1,000 ml @ 125 mls/hr Q8H IV Last administered on 08/19/18at 16:55; Admin Dose 125 MLS/HR; Start 08/18/18 at 21:10 Oxytocin/Lactated Ringer's 500 ml @ 125 mls/hr POST IV Last ad ministered on 08/19/18at 02:32; Admin Dose 125 MLS/HR; Start 08/18/18 at 21:30 Oxytocin/Lactated Ringer's 500 ml @ 0 mls/hr ONCE PRN IV .VAGINAL BLEEDING; Start 08/18/18 at 21:30 Methylergonovine Maleate (Methergine) 0.2 mg ONCE PRN IM .VAGINAL BLEEDING; Start 08/18/18 at 21:30 Carboprost Tromethamine (Hemabate) 250 mcg ONCE PRN IM .VAGINAL BLEEDING; Start 08/18/18 at 21:30 Misoprostol (Cytotec) 1,000 mcg ONCE PRN [place] .VAGINAL BLEEDING; Start 08/18/18 at 21:30 Ketorolac Tromethamine (Toradol) 30 mg PACU ORDER PRN IV FOR PAIN AFTER IV NARCOTIC MED Last administered on 08/19/18at 14:11; Admin Dose 30 MG; Start 08/19/18 at 02:00; Stop 08/22/18 at 06:00 Prochlorperazine (Compazine Inj) 5 mg PACU ORDER PRN IV NAUSEA/VOMITING; Start 08/19/18 at 02:00 Miscellaneous Information (* Miscellaneous Pharmacy Order) Duramorph: 0.2 mg Spi... GIVEN XX ; Start 08/19/18 at 03:00 Methylergonovine Maleate (Methergine) 0.2 mg Q6H PRN PO .VAGINAL BLEEDING; Start 08/19/18 at 03:00 Simethicone (Mylicon) 160 mg Q8H PRN PO .GAS; Start 08/19/18 at 03:00 Senna/Docusate Sodium (Senokot-S) 1 tab BID PO Last administered on 08/20/18at 08:13; Admin Dose 1 TAB; Start 08/19/18 at 09:00 Lanolin (Lanolin Hpa) 1 applic BEDSIDE MEDICATION PRN TOP .NIPPLES; Start 08/19/18 at 03:00 Diphtheria/ Tetanus/Acell Pertussis (Adacel) 0.5 ml ONCE ONCE IM* ; Start 08/22/18 at 09:00; Stop 08/22/18 at 09:01 Measles/Mumps/ Rubella Vaccine Live (Mmr Ii Vaccine) 0.5 ml ONCE ONCE SC* ; Start 08/22/18 at 09:00; Stop 08/22/18 at 09:01 Oxytocin/Lactated Ringer's 500 ml @ 0 mls/hr ONCE PRN IV .VAGINAL BLEEDING; Start 08/19/18 at 03:00 Methylergonovine Maleate (Methergine) 0.2 mg ONCE PRN IM .VAGINAL BLEEDING; Start 08/19/18 at 03:00 Carboprost Tromethamine (Hemabate) 250 mcg ONCE PRN IM .VAGINAL BLEEDING; Start 08/19/18 at 03:00 Misoprostol (Cytotec) 1,000 mcg ONCE PRN [place] .VAGINAL BLEEDING; Start 08/19/18 at 03:00 Ibuprofen (Motrin) 800 mg Q6H PRN PO MILD PAIN LEVEL 1-3; Start 08/20/18 at 09:30 Acetaminophen/ Hydrocodone Bitart ([place] (5/325)) 1 tab Q4H PRN PO MODERATE PAIN LEVEL 4-6; Start 08/20/18 at 08:30 Acetaminophen/ Hydrocodone Bitart ([place] (5/325)) 2 tab Q4H PRN PO SEVERE PAIN LEVEL 7-10 Last administered on 08/20/18at 08:13; Admin Dose 2 TAB; Start 08/20/18 at 08:30 JESSIKA OWUSU MD Aug 20, 2018 13:43
[2018-08-20 15:30] VITALS: BP 110/48; PULSE 96; RESP 18
[2018-08-20 16:09] VITALS: BP 99/53; PULSE 73; RESP 18
[2018-08-20 19:45] VITALS: BP 90/51; PULSE 73; RESP 19
[2018-08-20] MEDS: IBUPROFEN 800 MG TAB PO PRN (21:15)
[2018-08-21] MEDS: HYDROCODONE/APAP (5/325) TAB PO PRN ×4 (03:38→23:49)
[2018-08-21 03:40] VITALS: BP 101/59; PULSE 74; RESP 19
[2018-08-21] MEDS: IBUPROFEN 800 MG TAB PO PRN ×3 (05:26→17:57)
[2018-08-21] MEDS: LACTATED RINGER'S 1,000 ML IV SCH ×2 (06:26→20:06)
[2018-08-21 08:30] VITALS: BP 98/53; PULSE 67; RESP 18
[2018-08-21] MEDS: SENNA/DOCUSATE NA (8.6MG/50MG) TAB PO SCH ×2 (09:00→21:40)
--- NOTE | 2018-08-21 15:06 | PN ---
Date/Time of Note Date/Time of Note DATE: 08/21/18 TIME: 15:04 Assessment/Plan VTE Prophylaxis Risk score (from Nsg)>0 risk: 1 SCD applied (from Nsg): No SCD contraindicated: low risk/ambulating Pharmacological prophylaxis: NA/contraindicated Pharm contraindication: low risk/ambulating Lines/Catheters IV Catheter Type (from Nrsg): Saline Lock Assessment/Plan Assessment/Plan POST CSECTION DAY 2 CHRONIC IRON DEFICIENCY ANEMIA HOME TOMORROW CBC TOMORROW COUNSELED INSTRUCTED PRESCRIPTION GIVEN FOR PAIN RETURN TO CLINIC IN 2 WEEKS CALL OFFICE IF THERE IS ANY PROBLEM OR CONCERN CONTINUE WITH VITAMINS OD AND FERROUS SULFATE 325MG PO TID DIET ADVISED Result Diagram: 08/20/18 0652 08/20/18 0652 Subjective 24 Hr Interval Summary Free Text/Dictation POST CSECTION DAY 2 LITTLE BOWEL MOVEMENT GOOD URINE OUTPUT FEELS LESS INCISIONAL PAINS Exam/Review of Systems Exam Vitals Vital Signs Date Temp Pulse Resp B/P (MAP) Pulse Ox O2 O2 Flow FiO2 Time Delivery Rate 08/21/18 97.8 67 18 98/53 (68) Room Air 08:30 08/19/18 97 20:00 Exam VITAL SIGNS STABLE: YES AFEBRILE: YES BREAST NOT ENGORGED, NON-TENDER, NO APPRECIABLE MASS: YES LUNGS CLEAR, NO RALES, WHEEZES, RHONCHI: YES SINUS RHYTHM WITHOUT MURMUR: YES ABDOMEN: NON-TENDER FUNDUS: BELOW UMBILICUS BOWEL SOUNDS: PRESENT UTERUS: FIRM INCISION (CLEAN, DRY, AND INTACT): YES LOCHIA: LIGHT DEEP TENDON REFLEXES: 0 EXTREMITIES: NO CALF TENDERNESS EDEMA SCALE: NONE Medications Medication Current Medications Lactated Ringer's 1,000 ml @ 125 mls/hr Q8H IV Last administered on 08/19/18at 16:55; Admin Dose 125 MLS/HR; Start 08/18/18 at 21:10 Oxytocin/Lactated Ringer's 500 ml @ 125 mls/hr POST IV Last administered on 08/19/18at 02:32; Admin Dose 125 MLS/HR; Start 08/18/18 at 21:30 Oxytocin/Lactated Ringer's 500 ml @ 0 mls/hr ONCE PRN IV .VAGINAL BLEEDING; Start 08/18/18 at 21:30 Methylergonovine Maleate (Methergine) 0.2 mg ONCE PRN IM .VAGINAL BLEEDING; Start 08/18/18 at 21:30 Carboprost Tromethamine (Hemabate) 250 mcg ONCE PRN IM .VAGINAL BLEEDING; Start 08/18/18 at 21:30 Misoprostol (Cytotec) 1,000 mcg ONCE PRN [place] .VAGINAL BLEEDING; Start 08/18/18 at 21:30 Ketorolac Tromethamine (Toradol) 30 mg PACU ORDER PRN IV FOR PAIN AFTER IV NARCOTIC MED Last administered on 08/19/18at 14:11; Admin Dose 30 MG; Start 08/19/18 at 02:00; Stop 08/22/18 at 06:00 Prochlorperazine (Compazine Inj) 5 mg PACU ORDER PRN IV NAUSEA/VOMITING; Start 08/19/18 at 02:00 Miscellaneous Information (* Miscellaneous Pharmacy Order) Duramorph: 0.2 mg Spi... GIVEN XX ; Start 08/19/18 at 03:00 Methylergonovine Maleate (Methergine) 0.2 mg Q6H PRN PO .VAGINAL BLEEDING; Start 08/19/18 at 03:00 Simethicone (Mylicon) 160 mg Q8H PRN PO .GAS; Start 08/19/18 at 03:00 Senna/Docusate Sodium (Senokot-S) 1 tab BID PO Last administered on 08/21/18at 09:00; Admin Dose 1 TAB; Start 08/19/18 at 09:00 Lanolin (Lanolin Hpa) 1 applic BEDSIDE MEDICATION PRN TOP .NIPPLES Last administered on 08/21/18at 03:46; Admin Dose 1 APPLIC; Start 08/19/18 at 03:00 Diphtheria/ Tetanus/Acell Pertussis (Adacel) 0.5 ml ONCE ONCE IM* ; Start 08/22/18 at 09:00; Stop 08/22/18 at 09:01 Measles/Mumps/ Rubella Vaccine Live (Mmr Ii Vaccine) 0.5 ml ONCE ONCE SC* ; Start 08/22/18 at 09:00; Stop 08/22/18 at 09:01 Oxytocin/Lactated Ringer's 500 ml @ 0 mls/hr ONCE PRN IV .VAGINAL BLEEDING; Start 08/19/18 at 03:00 Methylergonovine Maleate (Methergine) 0.2 mg ONCE PRN IM .VAGINAL BLEEDING; Start 08/19/18 at 03:00 Carboprost Tromethamine (Hemabate) 250 mcg ONCE PRN IM .VAGINAL BLEEDING; Start 08/19/18 at 03:00 Misoprostol (Cytotec) 1,000 mcg ONCE PRN [place] .VAGINAL BLEEDING; Start 08/19/18 at 03:00 Ibuprofen (Motrin) 800 mg Q6H PRN PO MILD PAIN LEVEL 1-3 Last administered on 08/21/18at 11:34; Admin Dose 800 MG; Start 08/20/18 at 09:30 Acetaminophen/ Hydrocodone Bitart ([place] (5/325)) 1 tab Q4H PRN PO MODERATE PAIN LEVEL 4-6; Start 08/20/18 at 08:30 Acetaminophen/ Hydrocodone Bitart ([place] (5/325)) 2 tab Q4H PRN PO SEVERE PAIN LEVEL 7-10 Last administered on 08/21/18at 11:37; Admin Dose 2 TAB; Start 08/20/18 at 08:30 JESSIKA OWUSU MD Aug 21, 2018 15:06
[2018-08-21 17:55] VITALS: BP 110/57; PULSE 71; RESP 18
[2018-08-21 19:30] VITALS: BP 109/64; PULSE 73; RESP 19
[2018-08-22 03:35] VITALS: BP 98/54; PULSE 62; RESP 19
[2018-08-22] MEDS: IBUPROFEN 800 MG TAB PO PRN ×2 (03:36→10:23)
[2018-08-22] MEDS: HYDROCODONE/APAP (5/325) TAB PO PRN ×2 (05:55→13:22)
[2018-08-22 08:30] VITALS: BP 115/53; PULSE 67; RESP 18
[2018-08-22] MEDS ORDERED: MEASLES,MUMPS,RUBELLA VACCINE INJ SC* ONE (09:00)
[2018-08-22] MEDS ORDERED: DIPHTH/TET/ACEL PERTUSS (ADULT) 0.5 ML VIAL IM* ONE (09:00)
[2018-08-22] MEDS: SENNA/DOCUSATE NA (8.6MG/50MG) TAB PO SCH (10:55)
[2018-08-22 14:00] VITALS: BP 120/60; PULSE 70; RESP 16
--- NOTE | 2018-08-23 15:38 | DELSUM ---
Delivery Summary A-C Datetime Report Generated by CPN: 08/23/2018 15:38 DELIVERY PERSONNEL Hem Marker: Jaden, Krys MATERNAL INFORMATION Delivery Anesthesia: Spinal Medications in Delivery: SEE ANESTHESIA RECORD Delivery QBL (ml): 600 Placenta Cultured: No Maternal Complications: None LABOR SUMMARY EDC: 09/07/2018 00:00 No. Babies in Womb: 0 Attempted: No Labor Anesthesia: None LABOR INFORMATION Reason for Induction: Not Applicable Onset of Labor: 08/18/2018 09:00 Group B Beta Strep: Not Done Antibiotics # of Doses: X1 ANCEF 2G Antibiotics Time of Last Dose: 08/19/2018 01:33 Steroids Given: None Reason Steroids Not Administered: Not Applicable MEMBRANES Membranes Rupture Method: Artificial Rupture of Membranes: 08/19/2018 01:50 Length of Rupture (hr): 0.00 Amniotic Fluid Color: Clear Amniotic Fluid Amount: Small Amniotic Fluid Odor: None STAGES OF LABOR Stage 3 hr: 0 Stage 3 min: 2 Total Time in Labor hr: 16 Total Time in Labor min: 52 CSECTION DELIVERY Primary Indication: Repeat Elective Secondary Indication: N/A CSection Urgency: Elective CSection Incidence: Repeat Labor: Labor Elective: Elective CSection Incision: Lower Uterine Transverse BABY A INFORMATION Delivery Date/Time: 08/19/2018 01:50 Method of Delivery: Born in Route : No : N/A Forceps: N/A Vacuum Extraction: N/A Shoulder Dystocia : No SHOULDER DYSTOCIA BABY A Delivery Date/Time: 08/19/2018 01:50 PRESENTATION/POSITION BABY A Presentation: Cephalic Cephalic Presentation: Vertex Breech Presentation: N/A PLACENTA INFORMATION BABY A Placenta Delivery Time : 08/19/2018 01:52 Placenta Method of Delivery: Expressed Placenta Status: Delivered SCORES BABY A Heart Rate 1 min: >100 bpm Resp Effort 1 min: Good Cry Reflex Irritability 1 min: Cough/Sneeze/Pulls Away Muscle Tone 1 min: Active Motion Color 1 min: Blue/Pale Resuscitation Effort 1 min: Tactile Stimulation; PPV/NCPAP SCORE 1 MIN: 8 Heart Rate 5 min: >100 bpm Resp Effort 5 min: Good Cry Reflex Irritability 5 min: Cough/Sneeze/Pulls Away Muscle Tone 5 min: Active Motion Color 5 min: Body [place], Extremit Blue Resuscitation Effort 5 min: Tactile Stimulation; PPV/NCPAP SCORE 5 MIN: 9 INFANT INFORMATION BABY A Gestational Age at Delivery: 37.1 Gestational Status: Early Term- 37- 38.6 Weeks Outcome : Liveborn, with signs of life Infant Condition : Fair Sex: Female IDENTIFICATION/MEDS BABY A ID Band Number: [id number] ID Band Location: Right Leg; Left Arm Sensor Applied: No Sensor Number: [id number] Sensor Location : Cord Clamp Vitamin K Given : Not Given Erythromycin Given: Not Given WEIGHT/LENGTH BABY A Birthweight (gm): 2895 Weight (lb): 6 Weight (oz): 6 Length (in): 19.00 Infant Length (cm): 48.26 CORD INFORMATION BABY A No. Cord Vessels: 3 Nuchal Cord : N/A Cord Blood Taken: Yes Infant Suction: Mouth; Nose ASSESSMENT BABY A Infant Complications: None Physical Findings at Delivery: Within Normal Limits Infant Respirations: Grunting; Nasal [place] Netting Inspector/ALS Called : Yes Care By: NICU Transferred To: NICU
--- NOTE | 2018-08-23 21:06 | PN ---
Date/Time of Note Date/Time of Note DATE: 08/22/18 TIME: 3:00PM Assessment/Plan VTE Prophylaxis Risk score (from Nsg)>0 risk: 1 SCD applied (from Nsg): No SCD contraindicated: low risk/ambulating Pharmacological prophylaxis: NA/contraindicated Pharm contraindication: low risk/ambulating Lines/Catheters IV Catheter Type (from Nrsg): Saline Lock Assessment/Plan Assessment/Plan POST CSECTION DAY 3 CHRONIC IRON DEFICIENCY ANEMIA REFUSE BLOOD TRANSFUSION HOME TODAY COUNSELED INSTRUCTED PRESCRIPTION GIVEN FOR PAIN RETURN TO CLINIC IN 2 WEEKS CALL OFFICE IF THERE IS ANY PROBLEM OR CONCERN CONTINUE WITH VITAMINS OD AND FERROUS SULFATE 325MG PO TID DIET ADVISED Result Diagram: 08/22/18 0741 08/20/18 0652 Subjective 24 Hr Interval Summary Free Text/Dictation POST CSECTION DAY 3 LITTLE BOWEL MOVEMENT GOOD URINE OUTPUT FEELS LESS INCISIONAL PAINS Exam/Review of Systems Exam Vitals Vital Signs Date Temp Pulse Resp B/P (MAP) Pulse Ox O2 O2 Flow FiO2 Time Delivery Rate 08/22/18 98.0 70 16 120/60 Room Air 14:00 (80) 08/19/18 97 20:00 Exam VITAL SIGNS STABLE: YES AFEBRILE: YES BREAST NOT ENGORGED, NON-TENDER, NO APPRECIABLE MASS: YES LUNGS CLEAR, NO RALES, WHEEZES, RHONCHI: YES SINUS RHYTHM WITHOUT MURMUR: YES ABDOMEN: NON-TENDER FUNDUS: BELOW UMBILICUS BOWEL SOUNDS: PRESENT UTERUS: FIRM INCISION (CLEAN, DRY, AND INTACT): YES LOCHIA: LIGHT DEEP TENDON REFLEXES: 0 EXTREMITIES: NO CALF TENDERNESS EDEMA SCALE: NONE JESSIKA OWUSU MD Aug 23, 2018 21:06
== END 2018-08-22 15:38 | disposition home or self-care (01) | DRG 788 ==
LOC: OBT 19:06 → L-D 19:06 → OBT 20:55 → L-D 20:55 → PP1 08-19 04:51
PROVIDERS: ADMIT Obstetrics & Gynecology; ATTEND Obstetrics & Gynecology
PROC: 10D00Z1 Extraction of Products of Conception, Low, Open Approach (ICD-10-PCS; principal; 2018-08-19 01:30)
DX: O34.211 Maternal care for low transverse scar from previous cesarean delivery (principal); Z3A.37 37 weeks gestation of pregnancy; Z37.0 Single live birth; Z91.19 Patient's noncompliance with other medical treatment and regimen; O99.013 Anemia complicating pregnancy, third trimester
CPT/HCPCS: 76815; 80048; 85025; 85610; 85730; 86592; 86850; 86900; 86901; 86920; 87340; 90715; 99464; G0463; J0690; J1170; J1885; J2250; J2274; J2370; J2405; J2590; J2765; J7120